=== PATIENT | male | born 1990 | race Caucasian/White ===

== ENCOUNTER 2018-01-18 16:15 | Emergency (ER) | payer BC ==
[2018-01-18] MEDS: NORCO 5/325MG TABLET (BULK FOR ED) PO (18:58)
== END 2018-01-18 19:03 | disposition home or self-care (01) ==
LOC: M ED 16:15
DX: S93.401A Sprain of unspecified ligament of right ankle, initial encounter (principal); X50.1XXA Overexertion from prolonged static or awkward postures, initial encounter; Y92.830 Public park as the place of occurrence of the external cause; F17.200 Nicotine dependence, unspecified, uncomplicated
CPT/HCPCS: 73610